=== PATIENT | female | born 1965 | race African-American/Black ===

== ENCOUNTER 2020-07-03 15:01 | Emergency (ER) | payer OTHER ==
[~2020-07-03 15:01] MED LIST: CLARITIN10 MG PO; HYDROCODON-ACE1 EAC7 PO; NORVASC5 MG PO; TRAMADOL 50 MG50 MG PO
[2020-07-03 15:08] VITALS: BP 150/96
[2020-07-03] MEDS ORDERED: BACTRIM DS TAB1 EACH PO (15:31)
== END 2020-07-03 16:05 | disposition home or self-care (01) ==
LOC: ER 15:01
DX: T63.391A Toxic effect of venom of other spider, accidental (unintentional), initial encounter (principal); I10 Essential (primary) hypertension; I25.10 Atherosclerotic heart disease of native coronary artery without angina pectoris; F17.210 Nicotine dependence, cigarettes, uncomplicated; Z79.899 Other long term (current) drug therapy; Y92.89 Other specified places as the place of occurrence of the external cause